=== PATIENT | male | born 1985 ===

== ENCOUNTER 2021-02-26 15:47 | Inpatient (IN) | payer BC ==
[~2021-02-26] VITALS: Ht 180.3 cm; Wt 92.8 kg
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
[2021-02-26] MEDS ORDERED: SODIUM CHLORIDE FLUSH 10ML SYR IVF ONE (16:30)
--- NOTE | 2021-02-26 16:49 | NUR ---
PT RESTING ON GURNEY. NADN. RENEE.
[2021-02-26 17:04] LABS: BASOPHILS % (AUTO) 1 % (0-1); EOSINOPHILS % (AUTO) 1 % (1-7); LYMPHOCYTES % (AUTO) 20 % (22-44); MEAN CORPUSCULAR HEMOGLOBIN 30.9 pg (27.5-34.5); MEAN CORPUSCULAR HGB CONC 34.1 g/dL (33.2-36.2); MEAN PLATELET VOLUME 8.1 fL (7.4-10.4); MONOCYTES % (AUTO) 7 % (2-9); NEUTROPHILS % (AUTO) 72 % (42-75); PLATELET COUNT 288 x10^3/uL (130-400); RED BLOOD COUNT 5.04 x10^6/uL (4.38-5.82)
[2021-02-26 17:06] LABS: MD NO
[2021-02-26 17:16] LABS: ALBUMIN 4.4 g/dL (3.4-5.0); ANION GAP 4 mmol/L (5-15); CALCIUM 9.4 mg/dL (8.5-10.1); CHLORIDE 108 mmol/L (98-107)
[2021-02-26 17:21] LABS: ALANINE AMINOTRANSFERASE 22 U/L (12-78); ALKALINE PHOSPHATASE 76 U/L (45-117); BILIRUBIN,TOTAL 0.7 mg/dL (0.2-1.0); CREATININE 0.81 mg/dL (0.7-1.3); TOTAL PROTEIN 7.9 g/dL (6.4-8.2); TROPONIN I < 0.015 ng/mL (0.000-0.045)
--- NOTE | 2021-02-26 17:40 | NUR ---
REPORT GIVEN TO MARGARITA EDMOND RN. ALL QUESTIONS ANSWERED. AWAITING PT TRANSPORT.
[2021-02-26 18:45] VITALS: BP 131/85
[2021-02-26] MEDS ORDERED: ASPIRIN 325 MG TABLET EC PO ONE (19:00)
[2021-02-26] MEDS ORDERED: morphine SULFATE 10 MG/ML, 1ML IV PRN (19:00)
[2021-02-26] MEDS ORDERED: ACETAMINOPHEN 325 MG TABLET PO PRN (19:00)
[2021-02-26] MEDS ORDERED: morphine SULFATE 10 MG/ML, 1ML IVPush PRN (19:00)
[2021-02-26] MEDS ORDERED: NITROGLYCERIN 0.4 MG/SPRAY SL PRN (19:00)
[2021-02-26] MEDS: ENOXAPARIN 40 MG/0.4 ML SQ SCH (19:58)
[2021-02-26 20:13] VITALS: BP 142/86
[2021-02-26 20:16] VITALS: BP 153/83
[2021-02-26 20:17] VITALS: BP 155/94
[2021-02-26] MEDS: SODIUM CHLORIDE FLUSH 10ML SYR IVF SCH (21:17)
[2021-02-26] MEDS: SODIUM CHLORIDE 0.9% 1,000 ML IV SCH (22:23)
[2021-02-26 23:25] LABS: CREATINE KINASE, TOTAL 67 U/L (39-308); TROPONIN I < 0.015 ng/mL (0.000-0.045)
[2021-02-27 00:28] VITALS: BP 132/85
[2021-02-27 05:01] LABS: MEAN CORPUSCULAR HEMOGLOBIN 31.2 pg (27.5-34.5); MEAN CORPUSCULAR HGB CONC 34.3 g/dL (33.2-36.2); MEAN PLATELET VOLUME 8.2 fL (7.4-10.4); PLATELET COUNT 230 x10^3/uL (130-400); RED BLOOD COUNT 4.61 x10^6/uL (4.38-5.82); RED CELL DISTRIBUTION WIDTH 13.1 % (9.4-14.8)
[2021-02-27 05:16] LABS: CHLORIDE 108 mmol/L (98-107)
[2021-02-27 05:22] LABS: ALANINE AMINOTRANSFERASE 26 U/L (12-78); ALBUMIN 3.7 g/dL (3.4-5.0); ALKALINE PHOSPHATASE 71 U/L (45-117); ANION GAP 3 mmol/L (5-15); BILIRUBIN,TOTAL 0.5 mg/dL (0.2-1.0); CALCIUM 8.6 mg/dL (8.5-10.1); CHOL/HDL RATIO 3.4; CHOLESTEROL, TOTAL 123 mg/dL (140-239); HDL CHOL % 29 % (26-37); HDL CHOLESTEROL (DIRECT) 36 mg/dL (40-60); LDL CHOLESTEROL,CALCULATED 69 mg/dL (54-169); LDL/HDL RATIO 1.9 (0.5-3.0); TOTAL PROTEIN 6.8 g/dL (6.4-8.2); TRIGLYCERIDES 88 mg/dL (50-200); VLDL CHOLESTEROL 18 mg/dL (0-25)
[2021-02-27] MEDS: ASPIRIN 325 MG TABLET EC PO SCH (05:37)
[2021-02-27 07:56] VITALS: BP 157/82
[2021-02-27 08:01] LABS: FREE T4 (FREE THYROXINE) 1.11 ng/dL (0.76-1.46)
[2021-02-27] MEDS: SODIUM CHLORIDE FLUSH 10ML SYR IVF SCH ×2 (08:27→21:25)
[2021-02-27] MEDS: SODIUM CHLORIDE 0.9% 1,000 ML IV SCH (11:20)
[2021-02-27] MEDS ORDERED: REGADENOSON 0.4 MG/5 ML SYRINGE ONE (13:17)
[2021-02-27 14:24] VITALS: BP 155/95
[2021-02-27] MEDS ORDERED: BUTALB/APAP/CAFFEINE 50MG/325MG/40MG ONE (15:57)
[2021-02-27] MEDS ORDERED: BUTALB/APAP/CAFFEINE 50MG/325MG/40MG PO PRN (16:00)
[2021-02-27] MEDS ORDERED: OMNIPAQUE 350 MG/ML, 75ML BOTTLE ONE (17:27)
[2021-02-27 19:26] VITALS: BP 167/96
[2021-02-27] MEDS ORDERED: MELATONIN 5 MG TABLET PO PRN (20:30)
[2021-02-27] MEDS ORDERED: KETOROLAC 30 MG/1 ML IVPush PRN (21:00)
[2021-02-27] MEDS: ENOXAPARIN 40 MG/0.4 ML SQ SCH (21:24)
[2021-02-28 00:46] VITALS: BP 125/75
[2021-02-28 05:34] LABS: BASOPHILS % (AUTO) 1 % (0-1); EOSINOPHILS % (AUTO) 2 % (1-7); LYMPHOCYTES % (AUTO) 31 % (22-44); MEAN CORPUSCULAR HEMOGLOBIN 31.3 pg (27.5-34.5); MEAN CORPUSCULAR HGB CONC 34.7 g/dL (33.2-36.2); MEAN PLATELET VOLUME 8.3 fL (7.4-10.4); MONOCYTES % (AUTO) 9 % (2-9); NEUTROPHILS % (AUTO) 58 % (42-75); PLATELET COUNT 234 x10^3/uL (130-400); RED BLOOD COUNT 4.67 x10^6/uL (4.38-5.82); RED CELL DISTRIBUTION WIDTH 13.3 % (9.4-14.8)
[2021-02-28 05:35] LABS: MD NO
[2021-02-28 05:44] LABS: ANION GAP 3 mmol/L (5-15); CALCIUM 8.7 mg/dL (8.5-10.1); CHLORIDE 110 mmol/L (98-107); CREATININE 0.87 mg/dL (0.7-1.3)
[2021-02-28] MEDS: ASPIRIN 325 MG TABLET EC PO SCH (05:46)
[2021-02-28] MEDS: SODIUM CHLORIDE 0.9% 1,000 ML IV SCH (05:55)
[2021-02-28 07:29] VITALS: BP 128/81
[2021-02-28] MEDS ORDERED: GADOTERATE 10 MMOL/20ML SYR ONE (12:46)
[2021-02-28 13:12] VITALS: BP 147/76
[2021-02-28 13:14] VITALS: BP_SYST 144; BP_SYST 147; BP_DIAS 101; BP_DIAS 87
[2021-02-28] MEDS ORDERED: MELA5TAB14 PO (17:06)
[2021-02-28] MEDS ORDERED: LORA-445 PO (17:06)
== END 2021-02-28 20:49 | disposition home or self-care (01) | DRG 204 ==
LOC: ED 16:20 → EDIP 16:55 → 5SO 18:21
PROVIDERS: ADMIT Internal Medicine; ATTEND Internal Medicine
DX: R07.81 Pleurodynia (principal); M62.82 Rhabdomyolysis; M43.6 Torticollis; G90.9 Disorder of the autonomic nervous system, unspecified; F06.4 Anxiety disorder due to known physiological condition; R03.0 Elevated blood-pressure reading, without diagnosis of hypertension; R00.2 Palpitations; R11.0 Nausea; R00.0 Tachycardia, unspecified; R51.9 Headache, unspecified; R55 Syncope and collapse; R07.89 Other chest pain; Z80.51 Family history of malignant neoplasm of kidney; Z82.49 Family history of ischemic heart disease and other diseases of the circulatory system
CPT/HCPCS: 36415; 70544; 70553; 71275; 72052; 78452; 80048; 80053; 80061; 82550; 83520; 83735; 84439; 84443; 84481; 84484; 85025; 85027; 93005; 93017; 93306; G0378; J1650; J1885; J2785; Q9967; A9502; A9575; J7030; Q0177

== ENCOUNTER 2021-04-13 07:17 | Day surgery (SDC) | payer BC ==
[~2021-04-13] VITALS: Ht 180.3 cm; Wt 90.9 kg
[~2021-04-13 07:17] MED LIST: LORA-445 PO; MELA5TAB14 PO
[2021-04-13] MEDS ORDERED: ESCI10TA97 PO (07:42)
[2021-04-13 08:05] VITALS: BP 143/90
[2021-04-13] MEDS ORDERED: ISOPROTERENOL 0.2MG/ML, 5ML ONE (09:23)
== END 2021-04-13 10:28 | disposition home or self-care (01) ==
LOC: CACL 07:17
PROVIDERS: ATTEND Internal Medicine Cardiovascular Disease
DX: R00.2 Palpitations (principal); Z79.899 Other long term (current) drug therapy; Z91.013 Allergy to seafood
CPT/HCPCS: 93660